=== PATIENT | male | born 1965 | race American Indian/Alaskan Native ===

== ENCOUNTER 2017-06-25 22:31 | Inpatient (IN) | payer OTHER ==
[2017-06-25 23:25] VITALS: BMI 44.3
[2017-06-25] MEDS ORDERED: Sodium Chloride 0.9% 1,000 ML IV STA (23:42)
--- NOTE | 2017-06-25 23:57 | ED PDOC ---
Arrival/HPI - General Chief Complaint: Abdominal Pain Time Seen by Provider: 06/25/17 23:38 Historian: Patient - History of Present Illness Narrative History of Present Illness (Text): 06/25/17 23:54 Miguel Perez is a 52 year old male, whose past medical history includes diabetes, who presents to the Emergency department complaining of abdominal pain. Patient states he has been experiencing lower abdominal pain since 04:30 today, but pain has gradually worsened throughout the day. Patient notes he was unable to make it to the bathroom due to pain and urinated on himself. Patient reports associated fever, chills, and notes he feels near-syncopal at times. Patient denies any chest pain, shortness of breath, nausea, vomiting, diarrhea, back pain, neck pain, headache, dizziness, or any other complaints. Time/Duration: Other (04:30) Symptom Onset: Gradual Symptom Course: Unchanged Activities at Onset: Rest, Light Context: Home Past Medical History - Provider Review Nursing Documentation Reviewed: Yes - Infectious Disease Hx of Infectious Diseases: None - Cardiac Hx Pacemaker: No - Neurological Hx Paralysis: No - Endocrine/Metabolic Hx Diabetes Mellitus Type 2: Yes - Hematological/Oncological Hx Blood Transfusions: No Hx Blood Transfusion Reaction: No - Musculoskeletal/Rheumatological Hx Musculoskeletal Disorders: No - Psychiatric Hx Emotional Abuse: No Hx Physical Abuse: No Hx Substance Use: No - Past Surgical History Past Surgical History: No Previous - Surgical History Other/Comment: abdominal surgery. - Anesthesia Hx Anesthesia: Yes Hx Anesthesia Reactions: No Hx Malignant Hyperthermia: No - Suicidal Assessment Feels Threatened In Home Enviroment: No Family/Social History - Physician Review Nursing Documentation Reviewed: Yes Family/Social History: Unknown Family HX Smoking Status: Former Smoker Hx Alcohol Use: Yes (OCCASIONALLY) Frequency of alcohol use: Socially Hx Substance Use: No Hx Substance Use Treatment: No Allergies/Home Meds Allergies/Adverse Reactions: Allergies No Known Allergies Allergy (Unverified 06/21/15 19:35) Home Medications: Home Meds Medication Instructions Recorded Confirmed Atorvastatin [Lipitor] 10 mg PO DAILY 02/07/16 06/25/17 GlipiZIDE [Glucotrol] 5 mg PO BID 02/07/16 06/25/17 Metformin HCl [Fortamet] 1,000 mg PO BID 02/07/16 06/25/17 Multivitamin [Kidztuff [employer] Bears 1 ctb PO DAILY 02/08/16 06/25/17 Multivitamin] Dunmor-3 Fatty Acids/Fish Oil [Fish 1,000 mg PO DAILY 02/08/16 06/25/17 Oil 1,000 mg Capsule] Canagliflozin [Invokana] 1 tab PO DAILY 06/25/17 06/25/17 Review of Systems - Physician Review All systems were reviewed & negative as marked: Yes - Review of Systems Constitutional: Fevers, Other (+chills) Eyes: Normal ENT: Normal Respiratory: Normal. absent: SOB, Cough Cardiovascular: Other (+near-syncopal). absent: Chest Pain Gastrointestinal: Abdominal Pain Genitourinary Male: absent: Dysuria Musculoskeletal: Normal. absent: Back Pain, Neck Pain Skin: Normal. absent: Other Neurological: Normal Endocrine: Normal Hemo/Lymphatic: Normal Psychiatric: Normal Physical Exam Vital Signs Reviewed: Yes Vital Signs Temp Pulse Resp BP Pulse Ox 06/25/17 23:51 101.8 F H 104 H 18 103/58 L 99 06/25/17 23:29 101.8 F H 123 H 18 94 L Temperature: Febrile Blood Pressure: Normal Pulse: Regular Respiratory Rate: Normal Appearance: Positive for: Well-Appearing, Non-Toxic, Comfortable Pain Distress: None Mental Status: Positive for: Alert and Oriented X 3 - Systems Exam Head: Present: Atraumatic, Normocephalic Pupils: Present: PERRL Extroacular Muscles: Present: EOMI Conjunctiva: Present: Normal Mouth: Present: Moist Mucous Membranes Neck: Present: Normal Range of Motion Respiratory/Chest: Present: Clear to Auscultation, Good Air Exchange. No: Respiratory Distress, Accessory Muscle Use Cardiovascular: Present: Regular Rate and Rhythm, Normal S1, S2. No: Murmurs Abdomen: Present: Tenderness (RLQ tenderness), Normal Bowel Sounds. No: Distention, Peritoneal Signs Back: Present: Normal Inspection Upper Extremity: Present: Normal Inspection. No: Cyanosis, Edema Lower Extremity: Present: Normal Inspection. No: Edema Neurological: Present: GCS=15, CN II-XII Intact, Speech Normal Skin: Present: Warm, Dry, Normal Color. No: Rashes Psychiatric: Present: Alert, Oriented x 3, Normal Insight, Normal Concentration Medical Decision Making ED Course and Treatment: 06/25/17 23:55 Impression: 52 year old male complaining of lower abdominal pain, fever, chills, and near- syncope. Plan: -- CT Abdomen and Pelvis w/o contrast -- EKG -- CXR -- Labs, VBG, blood cultures -- Urinalysis, urine cultures -- IV fluids -- Tylenol -- Reassess and disposition Prior Visits: Notes and results from previous visits were reviewed. Progress Notes: Reviewed EKG, sinus tachycardia at 105 bpm. Inferior infarct. Poor R-wave progression. 06/26/17 06:00 Please refer to downtime documentation. - Lab Interpretations Lab Results: 06/26/17 01:27 06/26/17 01:27 Lab Results 06/26/17 01:27: Sodium 137, Chloride 103, Potassium 3.4 L, Carbon Dioxide 25, Anion Gap 12, BUN 28 H, Creatinine 1.9 H, Est GFR ( Amer) 45, Est GFR ( Non-Af Amer) 38, Random Glucose 115 H, Calcium 8.5, Phosphorus 3.3, Magnesium 1.6 L, Total Bilirubin 2.1 H, AST 16, ALT 23, Alkaline Phosphatase 62, Total Protein 6.6, Albumin 3.4, Globulin 3.2, Albumin/Globulin Ratio 1.1 06/26/17 01:27: pO2 67 H, VBG pH 7.40, VBG pCO2 41.0, VBG HCO3 25.4, VBG Total CO2 26.7, VBG O2 Sat (Calc) 96.4 H, VBG Base Excess 0.5, VBG Potassium 4.1, Sodium 135.0, Chloride 100.0, Glucose 125 H, Lactate 2.0, FiO2 21.0, Venous Blood Potassium 4.1 06/26/17 01:27: WBC 22.6 H, RBC 4.94, Hgb 14.0, Hct 41.3 L, MCV 83.6, MCH 28.3, MCHC 33.9, RDW 14.6 H, Plt Count 223, MPV 11.3 H, Neutrophils % (Manual) 71 H, Band Neutrophils % 7 H, Lymphocytes % (Manual) 12 L, Monocytes % (Manual) 10 H, Platelet Evaluation Normal I have reviewed the lab results: Yes - RAD Interpretation Radiology Orders: 06/25/17 23:40 CHEST PORTABLE [RAD] Stat 06/26/17 00:14 ABD & PELVIS W/O PO OR IV CONT [CT] Stat - EKG Interpretation Interpreted by ED Physician: Yes Type: 12 lead EKG - Medication Orders Current Medication Orders: Acetaminophen (Tylenol 325mg Tab) 650 mg PO Q4H PRN PRN Reason: TEMP > 101.5 F Last Admin: 06/26/17 19:22 Dose: 650 mg Re-Assess: MAR Pain/Vitals Document 06/26/17 20:22 NW (Rec: 06/26/17 20:47 NW [id number]) Pain Reassessment Is This A Pain ReAssessment? No Sleep Is patient sleeping during reassessment? No Presence of Pain Presence of Pain No Vitals Temperature (97.6 F-99.6 F) 100.9 F Temperature Source Oral Sodium Chloride (Sodium Chloride 0.9%) 1,000 mls @ 100 mls/hr IV .Q10H PAULO Stop: 06/27/17 02:29 Last Admin: 06/26/17 19:26 Dose: Piperacillin Sod/Tazobactam Sod (Zosyn 2.25 Gm In 0.9% 100 Ml) 100 mls @ 100 mls/hr IV Q8 PAULO PRN Reason: Protocol Stop: 07/05/17 22:01 Insulin Human Regular (Humulin R Med) 0 units SC ACHS PAULO PRN Reason: Protocol Last Admin: 06/26/17 16:22 Dose: Not Given Non-Admin Reason: Blood Sugar Parameter Oxycodone/Acetaminophen (Percocet 5/325 Mg Tab) 1 tab PO Q6H PRN PRN Reason: Pain, moderate (4-7) Stop: 06/29/17 11:44 Discontinued Medications Acetaminophen (Tylenol 325mg Tab) 975 mg PO STAT STA Stop: 06/25/17 23:44 Last Admin: 06/26/17 00:26 Dose: 975 mg Sodium Chloride (Sodium Chloride 0.9%) 1,000 mls @ 999 mls/hr IV .Q1H1M STA Stop: 06/26/17 00:42 Ceftriaxone Sodium (Rocephin 1 Gram Ivpb) Confirm Administered Dose 1 gm in 100 mls @ ud IVPB .STK-MED ONE Stop: 06/26/17 03:27 Metronidazole (Flagyl) Confirm Administered Dose 500 mg in 100 mls @ ud .ROUTE .STK-MED ONE Stop: 06/26/17 03:28 Metronidazole (Flagyl) 500 mg in 100 mls @ 100 mls/hr IVPB Q8 PAULO PRN Reason: Protocol Ceftriaxone Sodium (Rocephin 1 Gram Ivpb) 1 gm in 100 mls @ 100 mls/hr IVPB DAILY PAULO PRN Reason: Protocol Last Admin: 06/26/17 09:11 Dose: 100 mls/hr Metronidazole (Flagyl) 500 mg in 100 mls @ 100 mls/hr IVPB Q8 PAULO PRN Reason: Protocol Last Admin: 06/26/17 14:41 Dose: Ceftriaxone Sodium (Rocephin 1 Gram Ivpb) 1 gm in 100 mls @ 100 mls/hr IVPB DAILY PAULO PRN Reason: Protocol Magnesium Sulfate 2 gm/ Sodium (Chloride) 104 mls @ 102 mls/hr IVPB ONCE ONE Stop: 06/26/17 13:00 Last Admin: 06/26/17 13:10 Dose: 102 mls/hr Potassium Chloride (K-Dur 20 Meq Er Tab) 40 meq PO ONCE ONE Stop: 06/26/17 09:34 Last Admin: 06/26/17 11:32 Dose: 40 meq - Scribe Statement The provider has reviewed the documentation as recorded by the Benson Crowder Provider Scribe Attestation: All medical record entries made by the Scribmayco were at my direction and personally dictated by me. I have reviewed the chart and agree that the record accurately reflects my personal performance of the history, physical exam, medical decision making, and the department course for this patient. I have also personally directed, reviewed, and agree with the discharge instructions and disposition. Disposition/Present on Arrival - Present on Arrival Any Indicators Present on Arrival: No History of DVT/PE: No History of Uncontrolled Diabetes: No Urinary Catheter: No History of Decub. Ulcer: No History Surgical Site Infection Following: None - Disposition Have Diagnosis and Disposition been Completed?: Yes Diagnosis: Sepsis Disposition: HOSPITALIZED Disposition Time: 03:40 Patient Plan: Admission Condition: STABLE
[2017-06-26] MEDS ORDERED: cefTRIAXone 1 gm 1 GM/100 ML BAG IVPB ONE (03:26)
[2017-06-26] MEDS ORDERED: metroNIDAZOLE IV 500 mg/100 ml 500 MG/100 ML BAG ONE (03:27)
[2017-06-26 06:28] LABS: MEAN CELL VOLUME 83.6 fL (80.0-105.0); MEAN CORPUSCULAR HEMOGLOBIN 28.3 pg (25.0-35.0); MEAN CORPUSCULAR HGB CONC 33.9 g/dl (31.0-37.0); MEAN PLATELET VOLUME 11.3 fl (7.0-11.0); PLATELET COUNT 223 10^3/uL (120.0-450.0); RBC 4.94 10^6/uL (3.5-6.1); RED CELL DISTRIBUTION WIDTH 14.6 % (11.5-14.5); WHITE BLOOD COUNT 22.6 10^3/ul (4.5-11.0)
[2017-06-26 06:29] LABS: BAND 7 % (0-2); NEUTROPHIL 71 % (50.0-70.0)
[2017-06-26 06:30] LABS: LYMPHOCYTE 12 % (22.0-35.0); MONOCYTE 10 % (1.0-6.0); PLATELET ESTIMATE NORMAL (NORMAL)
[2017-06-26] MEDS: Sodium Chloride 0.9% 1,000 ML IV SCH ×2 (06:42→19:26)
[2017-06-26 06:49] LABS: VENOUS BLOOD GAS BASE EXCESS 0.5 mmol/L (0.0-2.0); VENOUS BLOOD GAS PO2 67 mm/Hg (30-55)
[2017-06-26 06:54] LABS: VENOUS BLOOD GAS BASE EXCESS -6.3 mmol/L (0.0-2.0); VENOUS BLOOD GAS PO2 42 mm/Hg (30-55); VENOUS BLOOD PH 7.28 (7.32-7.43)
[2017-06-26 06:59] LABS: ALB/GLOB RATIO 1.1 (1.1-1.8); ALBUMIN 3.4 g/dL (3.0-4.8); CALCIUM 8.5 mg/dL (8.4-10.5); MAGNESIUM 1.6 mg/dL (1.7-2.2)
--- NOTE | 2017-06-26 07:19 | RAD ---
HISTORY: Sepsis Patient COMPARISON: No prior. FINDINGS: LUNGS: Shallow lung volumes. Right perihilar soft tissue prominence blending with mild central pulmonary vascular congestion right greater than left. Concomitant right perihilar soft tissue pathology including right perihilar mass and right hilar lymphadenopathy are not excluded . Large body habitus, apical lordotic projection and portable technique all likely contributory to this appearance PLEURA: No significant pleural effusion identified, no pneumothorax apparent. CARDIOVASCULAR: Cardiomegaly. Central pulmonary vascular congestion right greater than left OSSEOUS STRUCTURES: Thoracic spondylosis VISUALIZED UPPER ABDOMEN: Normal. OTHER FINDINGS: None. IMPRESSION: Limited exam for reasons stated above. No peripheral consolidation appreciated. Cardiomegaly and pulmonary vascular congestion right greater than left. Concomitant right hilar/ perihilar pathology not excluded. Consider follow-up chest x-ray PA and lateral versus follow-up CT chest exam with contrast.
--- NOTE | 2017-06-26 08:36 | CT ---
PROCEDURE: CT Abdomen and Pelvis without intravenous contrast HISTORY: lower abdominal pain COMPARISON: None. TECHNIQUE: Without contrast. Contrast Dose: Radiation dose: Total exam DLP = 1398 mGy-cm. This CT exam was performed using one or more of the following dose reduction techniques: Automated exposure control, adjustment of the mA and/or kV according to patient size, and/or use of iterative reconstruction technique. FINDINGS: LOWER THORAX: Unremarkable. LIVER: 4 cm cyst in the hepatic dome. Fatty infiltration of the liver GALLBLADDER AND BILE DUCTS: Gallbladder removed PANCREAS: Unremarkable. No gross lesion or ductal dilatation. SPLEEN: Unremarkable. ADRENALS: Unremarkable. No mass. KIDNEYS AND URETERS: Unremarkable. No hydronephrosis. No solid mass. VASCULATURE: Unremarkable. No aortic aneurysm. BOWEL: Unremarkable. No obstruction. No gross mural thickening. APPENDIX: Unremarkable. Normal appendix. PERITONEUM: Unremarkable. No free fluid. No free air. LYMPH NODES: Unremarkable. No enlarged lymph nodes. BLADDER: There is minimal stranding posterior to the bladder and seminal vesicles. This could represent cystitis. Correlation with urinalysis recommended. REPRODUCTIVE: Unremarkable. BONES: No acute fracture. OTHER FINDINGS: The report concurs with the preliminary [facility] report IMPRESSION: Minimal stranding adjacent to the posterior bladder and seminal vesicles. Possible cystitis The study is otherwise unremarkable
[2017-06-26] MEDS ORDERED: Potassium Chloride 20 mEq ER Tab PO ONE (09:33)
[2017-06-26] MEDS ORDERED: cefTRIAXone 1 gm 1 GM/100 ML BAG IVPB SCH ×2 (10:00)
[2017-06-26 11:05] LABS: HEMOGLOBIN 12.8 gm/dL (14.0-18.0); MEAN CELL VOLUME 83.3 fL (80.0-105.0); MEAN CORPUSCULAR HEMOGLOBIN 27.5 pg (25.0-35.0); MEAN PLATELET VOLUME 11.4 fl (7.0-11.0); RBC 4.66 10^6/uL (3.5-6.1); RED CELL DISTRIBUTION WIDTH 14.3 % (11.5-14.5); WHITE BLOOD COUNT 18.7 10^3/ul (4.5-11.0)
[2017-06-26] MEDS: metroNIDAZOLE IV 500 mg/100 ml 500 MG/100 ML BAG IVPB SCH ×2 (11:05→14:41)
--- NOTE | 2017-06-26 11:19 | US ---
HISTORY: Elevated LFT COMPARISON: CT abdomen and pelvis -same-day TECHNIQUE: Sonographic evaluation of the abdomen. FINDINGS: LIVER: Measures 20.4 by 20.8 cm. Diffuse increased echogenicity of the liver parenchyma. No solid-appearing mass. A right hepatic lobe minimally septated cyst, 4.8 x 3.1 x 4.5 cm noted consistent with that reported on CT No intrahepatic bile duct dilatation. GALLBLADDER: Nonvisualized -prior cholecystectomy COMMON BILE DUCT: Measures 5.2 mm. No stones. No dilatation. PANCREAS: Unremarkable as visualized. No mass. No ductal dilatation. RIGHT KIDNEY: Measures 11.1 x 5.7 x 6.7cm. Normal echogenicity. No calculus, mass, or hydronephrosis. LEFT KIDNEY: Measures 12.0 x 8.0 x 6.3cm. Normal echogenicity. No calculus, mass, or hydronephrosis. SPLEEN: Normal in size and contour. No mass. AORTA: No aneurysmal dilatation. IVC: Unremarkable. OTHER FINDINGS: None. IMPRESSION: Right hepatic lobe minimally septated cyst measuring up to 4.8 cm. . Fatty infiltration of the liver. Status postcholecystectomy. No worrisome dilated ducts
[2017-06-26 11:46] LABS: VENOUS BLOOD GAS PO2 58 mm/Hg (30-55); VENOUS BLOOD PH 7.36 (7.32-7.43)
[2017-06-26] MEDS ORDERED: Magnesium Sulfate 2 GM in Sodium Chloride 0.9% 100 ML IVPB ONE (11:59)
[2017-06-26] MEDS: Insulin Reg-MEDIUM-Coverage SC SCH ×3 (12:37→21:43)
--- NOTE | 2017-06-26 13:40 | CP.PCM.CON ---
<Shae Soria - Last Filed: 06/26/17 13:41> History of Present Illness - History of Present Illness History of Present Illness: Seen and examined earlier this am,chart reviewed, request for consult is for abdominal pain. HPI: This is a 52 morbidly obese male with a PMH of DM type II comes to the ER with complaints of feeling like he had was going to pass out. He did not have any LOC. He c/o sudden onset of abdominal pain, that woke him up around 4 am on Saturday. Last he recall eating at home ribs, macaroni, and eleno greens, he did state that on Saturday night he had chicken strips outside. He did c/o feeling fever and chills, had nausea, no vomiting, had regular BM, no diarrhea. But he was incontinent of urine. Last BM was this morning and was formed, no melena or BRBPR. The pain yesterday was 9/10 this am is 3/10. He had ct scan abdomen and pelvis and no acute findings but for possible renal cysts. He c/o suprapubic abdominal pain. His last colon was 04/2016, no polyps but internal hemorrhoids. PMH: DM, type II, morbid obesity, internal hemorrhoids PSH: denies cholecytectomy, colon 04/2016 Allergies: NKDA MEDS: reviewed as per MAR Social HX: former smoker, social ETOH, denies drugs Family HX: noncontributory at this time ROS: systems reviewed, with positive Past Patient History - Infectious Disease Hx of Infectious Diseases: None - Past Social History Smoking Status: Former Smoker - CARDIAC Hx Pacemaker: No - NEUROLOGICAL Hx Paralysis: No - ENDOCRINE/METABOLIC Hx Diabetes Mellitus Type 2: Yes - HEMATOLOGICAL/ONCOLOGICAL Hx Blood Transfusions: No Hx Blood Transfusion Reaction: No - MUSCULOSKELETAL/RHEUMATOLOGICAL Hx Musculoskeletal Disorders: No - PSYCHIATRIC Hx Emotional Abuse: No Hx Physical Abuse: No Hx Substance Use: No - SURGICAL HISTORY Other/Comment: abdominal surgery. - ANESTHESIA Hx Anesthesia: Yes Hx Anesthesia Reactions: No Hx Malignant Hyperthermia: No Meds Allergies/Adverse Reactions: Allergies Allergy/AdvReac Type Severity Reaction Status Date / Time No Known Allergies Allergy Unverified 06/21/15 19:35 - Medications Medications: Current Medications Acetaminophen (Tylenol 325mg Tab) 650 mg PO Q4H PRN PRN Reason: TEMP > 101.5 F Last Admin: 06/26/17 11:14 Dose: 650 mg Sodium Chloride (Sodium Chloride 0.9%) 1,000 mls @ 100 mls/hr IV .Q10H [facility] Stop: 06/27/17 02:29 Last Admin: 06/26/17 06:42 Dose: 100 mls/hr Ceftriaxone Sodium (Rocephin 1 Gram Ivpb) 1 gm in 100 mls @ 100 mls/hr IVPB DAILY PAULO PRN Reason: Protocol Last Admin: 06/26/17 09:11 Dose: 100 mls/hr Metronidazole (Flagyl) 500 mg in 100 mls @ 100 mls/hr IVPB Q8 PAULO PRN Reason: Protocol Last Admin: 06/26/17 11:05 Dose: 100 mls/hr Insulin Human Regular (Humulin R Med) 0 units SC ACHS PAULO PRN Reason: Protocol Last Admin: 06/26/17 12:37 Dose: Not Given Oxycodone/Acetaminophen (Percocet 5/325 Mg Tab) 1 tab PO Q6H PRN PRN Reason: Pain, moderate (4-7) Stop: 06/29/17 11:44 Physical Exam - Constitutional Appears: No Acute Distress - Head Exam Head Exam: NORMAL INSPECTION - Eye Exam Eye Exam: Normal appearance. absent: Scleral icterus - ENT Exam ENT Exam: Mucous Membranes Moist - Neck Exam Neck exam: Positive for: Normal Inspection - Respiratory Exam Respiratory Exam: Decreased Breath Sounds, NORMAL BREATHING PATTERN. absent: Rales, Wheezes, Respiratory Distress - Cardiovascular Exam Cardiovascular Exam: +S1, +S2 - GI/Abdominal Exam GI & Abdominal Exam: Distended (obese), Normal Bowel Sounds, Soft, Tenderness ( suprapubic). absent: Guarding, Rebound - Extremities Exam Extremities exam: Positive for: pedal pulses present. Negative for: calf tenderness, pedal edema - Neurological Exam Neurological exam: Alert, Oriented x3 - Skin Skin Exam: Dry, Warm Results - Vital Signs Recent Vital Signs: Last Vital Signs Temp 100.3 F H 06/26/17 11:14 Pulse 116 H 06/26/17 07:43 Resp 22 06/26/17 07:43 BP 101/66 06/26/17 10:01 Pulse Ox 95 06/26/17 07:43 - Labs Result Diagrams: 06/26/17 09:00 06/26/17 01:27 Labs: Laboratory Results - last 24 hr 06/26/17 06/26/17 06/26/17 06:51 07:39 09:00 WBC 18.7 H RBC 4.66 Hgb 12.8 L Hct 38.8 L MCV 83.3 MCH 27.5 MCHC 33.0 RDW 14.3 Plt Count 193 MPV 11.4 H pO2 42 VBG pH 7.28 L VBG pCO2 43.0 VBG HCO3 20.2 L VBG Total CO2 21.5 L VBG O2 Sat (Calc) 77.7 H VBG Base Excess -6.3 L VBG Potassium 3.4 L Sodium 139.0 Chloride 112.0 H Glucose 86 Lactate 2.2 H FiO2 21.0 POC Glucose (mg/dL) 114 H Prostate Specific Ag Venous Blood Potassium 3.4 L 06/26/17 06/26/17 06/26/17 10:35 11:30 11:35 WBC RBC Hgb Hct MCV MCH MCHC RDW Plt Count MPV pO2 58 H VBG pH 7.36 VBG pCO2 37.0 L VBG HCO3 20.9 L VBG Total CO2 22.0 VBG O2 Sat (Calc) 93.1 H VBG Base Excess -4.0 L VBG Potassium 2.8 L Sodium 139.0 Chloride 111.0 H Glucose 101 Lactate 1.1 FiO2 21.0 POC Glucose (mg/dL) 55 L Prostate Specific Ag 21.4 H Venous Blood Potassium 2.8 L 06/26/17 12:21 WBC RBC Hgb Hct MCV MCH MCHC RDW Plt Count MPV pO2 VBG pH VBG pCO2 VBG HCO3 VBG Total CO2 VBG O2 Sat (Calc) VBG Base Excess VBG Potassium Sodium Chloride Glucose Lactate FiO2 POC Glucose (mg/dL) 165 H Prostate Specific Ag Venous Blood Potassium Assessment & Plan - Assessment and Plan (Free Text) Assessment: ASSESSMENT: Leukocytosis Abdominal Pain, more suprapubic R/O cystitis Hyperbilirubinemia Morbid obesity DM Elevated PSA PLAN: Abdominal US mod carb diet on IV ceftriaxone and flagyl trend lft check retic count IVF for hydration blood culture pending urine c/s to be collected ID following Thank you for this consult and for allowing us to participate in your patient care, will make further recommendation based upon clinical course. Seenand discussed with Dr. Gualberto. <Gualberto,Kovil V - Last Filed: 06/26/17 23:34> Meds - Medications Medications: Current Medications Acetaminophen (Tylenol 325mg Tab) 650 mg PO Q4H PRN PRN Reason: TEMP > 101.5 F Last Admin: 06/26/17 19:22 Dose: 650 mg Sodium Chloride (Sodium Chloride 0.9%) 1,000 mls @ 100 mls/hr IV .Q10H PAULO Stop: 06/27/17 02:29 Last Admin: 06/26/17 19:26 Dose: Not Given Piperacillin Sod/Tazobactam Sod (Zosyn 2.25 Gm In 0.9% 100 Ml) 2.25 gm in 100 mls @ 100 mls/hr IV Q8 PAULO PRN Reason: Protocol Stop: 07/05/17 22:01 Last Admin: 06/26/17 21:44 Dose: 100 mls/hr Insulin Human Regular (Humulin R Med) 0 units SC ACHS PAULO PRN Reason: Protocol Last Admin: 06/26/17 21:43 Dose: Not Given Oxycodone/Acetaminophen (Percocet 5/325 Mg Tab) 1 tab PO Q6H PRN PRN Reason: Pain, moderate (4-7) Stop: 06/29/17 11:44 Results - Vital Signs Recent Vital Signs: Last Vital Signs Temp 100.9 F H 06/26/17 20:22 Pulse 98 H 06/26/17 16:00 Resp 20 06/26/17 16:00 BP 116/58 L 06/26/17 16:00 Pulse Ox 98 06/26/17 16:00 - Labs Result Diagrams: 06/26/17 09:00 06/26/17 01:27 Labs: Laboratory Results - last 24 hr 06/26/17 06/26/17 06/26/17 06:51 07:39 09:00 WBC 18.7 H RBC 4.66 Hgb 12.8 L Hct 38.8 L MCV 83.3 MCH 27.5 MCHC 33.0 RDW 14.3 Plt Count 193 MPV 11.4 H pO2 42 VBG pH 7.28 L VBG pCO2 43.0 VBG HCO3 20.2 L VBG Total CO2 21.5 L VBG O2 Sat (Calc) 77.7 H VBG Base Excess -6.3 L VBG Potassium 3.4 L Sodium 139.0 Chloride 112.0 H Glucose 86 Lactate 2.2 H FiO2 21.0 POC Glucose (mg/dL) 114 H Prostate Specific Ag Venous Blood Potassium 3.4 L 06/26/17 06/26/17 06/26/17 10:35 11:30 11:35 WBC RBC Hgb Hct MCV MCH MCHC RDW Plt Count MPV pO2 58 H VBG pH 7.36 VBG pCO2 37.0 L VBG HCO3 20.9 L VBG Total CO2 22.0 VBG O2 Sat (Calc) 93.1 H VBG Base Excess -4.0 L VBG Potassium 2.8 L Sodium 139.0 Chloride 111.0 H Glucose 101 Lactate 1.1 FiO2 21.0 POC Glucose (mg/dL) 55 L Prostate Specific Ag 21.4 H Venous Blood Potassium 2.8 L 06/26/17 06/26/17 06/26/17 12:21 15:45 21:33 WBC RBC Hgb Hct MCV MCH MCHC RDW Plt Count MPV pO2 VBG pH VBG pCO2 VBG HCO3 VBG Total CO2 VBG O2 Sat (Calc) VBG Base Excess VBG Potassium Sodium Chloride Glucose Lactate FiO2 POC Glucose (mg/dL) 165 H 125 H 113 H Prostate Specific Ag Venous Blood Potassium Attending/Attestation - Attestation I have personally seen and examined this patient.: Yes I have fully participated in the care of the patient.: Yes I have reviewed all pertinent clinical information: Yes Notes (Text): 06/26/17 23:34 thi
[2017-06-26] MEDS ORDERED: metroNIDAZOLE IV 500 mg/100 ml 500 MG/100 ML BAG IVPB SCH (14:00)
--- NOTE | 2017-06-26 16:09 | HP ---
DATE: 06/26/2017 HISTORY OF PRESENT ILLNESS: This is a 52-year-old male, who is coming to the hospital with a past medical history of diabetes. He was complaining of abdominal pain. He was saying that he had urinary incontinence. The patient was complaining of burning when he went to the bathroom. This happened about a day prior to coming to the hospital. He has been having fevers and chills. He has been sweating. The patient has been having near syncope. He reports that he had chills and fevers. He has no complaints of back pain and no weakness in the arms or legs. No dizziness. He has been eating okay. REVIEW OF SYSTEMS: All other review of symptoms are within normal limits except what is mentioned. HOME MEDICATIONS: Lipitor, Glucotrol, Fortamet, multivitamin, and Invokana. PAST MEDICAL HISTORY: Dyslipidemia, diabetes type 2. SOCIAL HISTORY: Denies smoking. He is a former smoker, he drinks socially. FAMILY HISTORY: Noncontributory. PHYSICAL EXAMINATION: VITAL SIGNS: The patient has a T-max of 102, pulse is 116, blood pressure is 104/39, respirations 22, O2 saturation 95%, height is 5 feet 9 inches, weight is 300 pounds, BMI is 44.3. GENERAL: The patient is lying in bed, comfortable, in no acute distress. HEENT: Atraumatic and normocephalic. Anicteric sclerae. Moist mucosa. No oral lesions. Conjunctivae pink. EOMI. PERRLA. NECK: Supple, no JVD, thyromegaly, or bruits. No anterior, posterior, or cervical adenopathy. HEART: S1 and S2 irregular. No murmurs, rubs, or gallops. LUNGS: Clear to auscultation bilaterally. No wheezes, rales, or rhonchi. No retractions. ABDOMEN: Bowel sounds are positive. Soft, nontender, and nondistended. No hepatosplenomegaly. EXTREMITIES: No cyanosis, clubbing, or edema. NEUROLOGICAL: No facial asymmetry. Tongue is midline. No uvula deviation. Power is 5/5 in upper extremity and lower extremity. Sensation is intact in the upper and lower extremity. PSYCHIATRIC: Awake, alert, oriented x3. No anxiety or depression. Good insight. Normal affect. GENITOURINARY: No CVA tenderness. VASCULAR: 2+ pulses in the carotids and pedal pulses. SKIN: No edema or abnormal nodules. SPINE: Normal curvature. ADENOPATHY: No anterior, posterior, or cervical adenopathy. LABORATORY DATA: The patient has a white count of 22.6, hemoglobin 14. The patient's ABG showed a pH of 7.4, PCO2 is 41, and the lactate of 2.2. Second ABG; potassium 3.4, creatinine is 1.9, unknown baseline, magnesium is 1.6. The patient has BUN of 28. CT of the abdomen and pelvis done shows minimal stranding adjacent to the posterior bladder and seminal vesicles, possible cystitis. Chest x-ray is limited. There is no peripheral consolidation that is appreciated. ASSESSMENT: 1. Sepsis. 2. Acute kidney injury. 3. Diabetes type 2. 4. Dyslipidemia. PLAN: The patient has been having high fevers. He is having urinary symptoms. He most likely has sepsis secondary to urinary tract infection. Blood cultures and urine cultures have been ordered. I have asked to evaluate. He has been given Rocephin and Flagyl as well as IV fluids for his acute kidney injury. I will place him on insulin sliding scale with fingerstick coverage. I will also get PSA. This patient, who is and over 50, to rule out prostatitis. He is going to have repeat blood work done tomorrow. I will continue to follow him closely. I will give him Percocet for pain as he says Tylenol is not helping. Nish Mathias MD
--- NOTE | 2017-06-26 17:37 | CARD ---
APPROVED REPORT EKG Measurement Heart [id number] <Conclusion> Sinus tachycardia Inferior infarct, age undetermined Possible Anterior infarct, age undetermined Abnormal ECG
[2017-06-26] MEDS: Piperacillin/Tazobact 2.25gm 2.25 GM/100 ML BAG IV SCH (21:44)
[2017-06-27] MEDS: Oxycodone/Acetaminophen 5/325 mg Tab PO PRN ×2 (00:10→22:02)
[2017-06-27] MEDS: Piperacillin/Tazobact 2.25gm 2.25 GM/100 ML BAG IV SCH ×3 (05:06→21:55)
--- NOTE | 2017-06-27 05:47 | CON ---
DATE: 06/26/2017 The patient is seen in bed and in no acute distress, seen earlier this morning at 3:67. CHIEF COMPLAINT: Abdominal pain x1 day duration. HISTORY OF PRESENT ILLNESS: This is a 52-year-old male with morbid obesity with a BMI of 44, who is admitted through the emergency room complaining of abdominal pain. Lower abdominal pain is diffuse in nature and worse throughout the night, it is associated with urination , dysuria and frequency. He also complained of fevers. He continued to have chills. No chest pain, shortness of breath, or cough. No back pain. He denies any nausea or vomiting. PAST MEDICAL HISTORY: Significant for diabetes mellitus, hypertension, and high cholesterol. PAST SURGICAL HISTORY: Noncontributory. ALLERGIES: THE PATIENT HAS NO KNOWN ALLERGIES TO ANY ANTIBIOTICS. MEDICATIONS: The patient's medications at home are reviewed include fish oil, vitamins, Glucotrol, Lipitor, and canagliflozin. PHYSICAL EXAMINATION: GENERAL: The patient is seen in bed. VITAL SIGNS: Temperature 102, respiratory rate 20, heart rate 98, and blood pressure 116/70. HEENT: Unremarkable. NECK: Supple. HEART: Normal S1 and S2. LUNGS: Decreased breath sounds. ABDOMEN: Soft and nontender. Mild tenderness to lower abdominal area. LABORATORY DATA: Reveals a white count of 22,000 with a hemoglobin of 14, platelets of 223, and 7% bandemia. Blood gases are noted. Chemistry revealed a PSA of 21 and creatinine is 1.9. The patient had a CAT scan of the abdomen and pelvis, which revealed lower thorax to be unremarkable liver cystitis. Shae Soria' consultation is reviewed and notes on abdominal ultrasound is also noted. The patient with a history of cholecystectomy is noted. Common bile duct at 5.2 mm with no stones seen. ASSESSMENT AND PLAN: He is a 52-year-old male with morbid obesity, body mass index of 44, diabetes, hypertension, high cholesterol, history of cholecystectomy, admitted with severe sepsis, most likely secondary to and cystitis with acute kidney injury. We will treat with Zosyn and discontinue Flagyl and Rocephin and HIV test. We order urinalysis and urine culture and we will make further recommendations. He had an urology evaluation for an elevated PSA, rule out prostatitis and prostate disease. We will follow with you. Dillon Alaniz MD [facility] # [id number]
[2017-06-27 07:11] LABS: HEMOGLOBIN 12.7 gm/dL (14.0-18.0); MEAN CORPUSCULAR HEMOGLOBIN 27.3 pg (25.0-35.0); MEAN CORPUSCULAR HGB CONC 32.9 g/dl (31.0-37.0); MEAN PLATELET VOLUME 11.6 fl (7.0-11.0); RBC 4.65 10^6/uL (3.5-6.1); RED CELL DISTRIBUTION WIDTH 14.5 % (11.5-14.5); WHITE BLOOD COUNT 20.8 10^3/ul (4.5-11.0)
[2017-06-27 07:14] LABS: INR 1.22 (0.93-1.08); PARTIAL THROMBOPLASTIN TIME 39.7 Seconds (23.7-30.8); PROTHROMBIN TIME 13.2 Seconds (9.9-11.8)
[2017-06-27 07:43] LABS: ALBUMIN 3.3 g/dL (3.0-4.8); ALT/SGPT 25 U/L (7-56); AST/SGOT 21 U/L (15-59); BILIRUBIN,DIRECT 0.4 mg/dL (0.0-0.4); BLOOD UREA NITROGEN 14 mg/dL (7-21); CALCIUM 8.7 mg/dL (8.4-10.5); GFR AFRICAN-AMERICAN > 60; GFR NON-AFRICAN AMERICAN > 60
[2017-06-27] MEDS ORDERED: Potassium Chloride 20 mEq ER Tab PO ONE (08:07)
[2017-06-27] MEDS: Insulin Reg-MEDIUM-Coverage SC SCH ×3 (09:10→21:52)
[2017-06-27 10:49] LABS: URINE BILIRUBIN NEGATIVE (NEGATIVE); URINE BLOOD MODERATE (NEGATIVE); URINE GLUCOSE (UA) >=1000 mg/dL (NEGATIVE); URINE LEUKOCYTE ESTERASE NEGATIVE Leu/uL (NEGATIVE); URINE NITRATE NEGATIVE (NEGATIVE); URINE PROTEIN 30 mg/dL (<30 mg/dL); URINE UROBILINOGEN 0.2 E.U./dL (<1 E.U./dL)
[2017-06-27 10:50] LABS: URINE COLOR LIGHT YELLOW (YELLOW)
[2017-06-27 11:42] LABS: URINE RBC 0 - 2 /hpf (0-2)
[2017-06-27 11:43] LABS: URINE BACTERIA FEW (NEG); URINE EPITHELIAL CELLS 0 - 2 /hpf (0-5)
[2017-06-27 11:50] LABS: URINE APPEARANCE CLEAR (CLEAR)
--- NOTE | 2017-06-27 12:41 | CP.PCM.PN ---
<Shae Soria - Last Filed: 06/27/17 12:41> Subjective - Date & Time of Evaluation Date of Evaluation: 06/27/17 Time of Evaluation: 08:55 - Subjective Subjective: S&E at bedside this am, having loose stool but with lots of flatus, no bleeding. No fever or chills, suprapubic discomfort slightly better. Tolerating food. No fever or chill, urinating with no complaints. Objective - Vital Signs/Intake and Output Vital Signs (last 24 hours): Temp Pulse Resp BP Pulse Ox 100.8 F H 109 H 20 114/70 97 06/27/17 08:30 06/27/17 08:30 06/27/17 08:30 06/27/17 08:30 06/27/17 08:30 Intake and Output: 06/27/17 06/27/17 06:59 18:59 Intake Total 860 360 Output Total 1500 Balance -640 360 - Medications Medications: Current Medications Acetaminophen (Tylenol 325mg Tab) 650 mg PO Q4H PRN PRN Reason: TEMP > 101.5 F Last Admin: 06/27/17 05:06 Dose: 650 mg Piperacillin Sod/Tazobactam Sod (Zosyn 2.25 Gm In 0.9% 100 Ml) 2.25 gm in 100 mls @ 100 mls/hr IV Q8 PAULO PRN Reason: Protocol Stop: 07/05/17 22:01 Last Admin: 06/27/17 05:06 Dose: 100 mls/hr Insulin Human Regular (Humulin R Med) 0 units SC ACHS PAULO PRN Reason: Protocol Last Admin: 06/27/17 09:10 Dose: Not Given Oxycodone/Acetaminophen (Percocet 5/325 Mg Tab) 1 tab PO Q6H PRN PRN Reason: Pain, moderate (4-7) Stop: 06/29/17 11:44 Last Admin: 06/27/17 00:10 Dose: 1 tab - Labs Labs: 06/27/17 06:30 06/27/17 06:30 PT 13.2 Seconds (9.9-11.8) H 06/27/17 06:30 INR 1.22 (0.93-1.08) H 06/27/17 06:30 APTT 39.7 Seconds (23.7-30.8) H 06/27/17 06:30 - Constitutional Appears: No Acute Distress - Head Exam Head Exam: NORMOCEPHALIC - Eye Exam Eye Exam: Normal appearance. absent: Scleral icterus - ENT Exam ENT Exam: Mucous Membranes Moist - Neck Exam Neck Exam: Normal Inspection - Respiratory Exam Respiratory Exam: Clear to Ausculation Bilateral, NORMAL BREATHING PATTERN. absent: Respiratory Distress - Cardiovascular Exam Cardiovascular Exam: +S1, +S2 - GI/Abdominal Exam GI & Abdominal Exam: Soft, Tenderness (more suprapubic), Normal Bowel Sounds. absent: Guarding, Organomegaly, Rebound - Extremities Exam Extremities Exam: Normal Capillary Refill. absent: Calf Tenderness, Pedal Edema - Neurological Exam Neurological Exam: Alert, Awake, Oriented x3 Assessment and Plan - Assessment and Plan (Free Text) Assessment: ASSESSMENT: Leukocytosis Abdominal Pain, more suprapubic may be secondary to Prostatitis Hyperbilirubinemia, now normalized Morbid obesity DM Elevated PSA PLAN: mod carb diet on Zosyn stool cdiff urine c/s pending ID /urology FU Seen and discussed with Dr. Burciaga. <Jj Burciaga V - Last Filed: 06/27/17 23:38> Objective - Vital Signs/Intake and Output Vital Signs (last 24 hours): Temp Pulse Resp BP Pulse Ox 98.8 F 116 H 20 109/65 95 06/27/17 20:00 06/27/17 16:00 06/27/17 16:00 06/27/17 16:00 06/27/17 16:00 Intake and Output: 06/27/17 06/28/17 18:59 06:59 Intake Total 1760 Output Total 1100 Balance 660 - Medications Medications: Current Medications Acetaminophen (Tylenol 325mg Tab) 650 mg PO Q4H PRN PRN Reason: TEMP > 101.5 F Last Admin: 06/27/17 13:33 Dose: 650 mg Piperacillin Sod/Tazobactam Sod (Zosyn 3.375 In Ns 100ml) 100 mls @ 200 mls/hr IVPB Q6 PAULO PRN Reason: Protocol Stop: 06/28/17 12:29 Ibuprofen (Motrin Tab) 600 mg PO Q6H PRN PRN Reason: Fever >100.4 F Last Admin: 06/27/17 15:47 Dose: 600 mg Insulin Human Regular (Humulin R Med) 0 units SC ACHS PAULO PRN Reason: Protocol Last Admin: 06/27/17 21:52 Dose: Not Given Oxycodone/Acetaminophen (Percocet 5/325 Mg Tab) 1 tab PO Q6H PRN PRN Reason: Pain, moderate (4-7) Stop: 06/29/17 11:44 Last Admin: 06/27/17 22:02 Dose: 1 tab - Labs Labs: 06/27/17 06:30 06/27/17 06:30 PT 13.2 Seconds (9.9-11.8) H 06/27/17 06:30 INR 1.22 (0.93-1.08) H 06/27/17 06:30 APTT 39.7 Seconds (23.7-30.8) H 06/27/17 06:30 Attending/Attestation - Attestation I have personally seen and examined this patient.: Yes I have fully participated in the care of the patient.: Yes I have reviewed all pertinent clinical information, including history, physical exam and plan: Yes Notes (Text): t
--- NOTE | 2017-06-27 13:55 | PN ---
DATE: 06/27/2017 SUBJECTIVE: The patient seen in bed. Seen earlier today. He states he if feeling better now. He continues to have fevers. PHYSICAL EXAMINATION VITAL SIGNS: Temperature is 100.8, blood pressure is 114/70, respiratory rate 20, heart rate of 109. HEENT: Unremarkable. NECK: Supple. LUNGS: Decreased breath sounds. HEART: Normal S1 and S2. ABDOMEN: Soft. Mild tenderness on lower abdomen. No rebound or guarding. LABORATORY DATA: Reveals a white count of 20,000, hemoglobin of 12, platelets of 198. BUN of 14, creatinine of 1.1. Urinalysis reveals to be pending WBC's and pending WBC's and moderate blood. Microbiology reveals the blood cultures are negative. Urine cultures are pending. Review of orders reveals the Zosyn. ASSESSMENT AND PLAN: This is a 52-year-old morbidly obese male with a BMI of 44 with diabetes, hypertension, high cholesterol and with a history of cholecystectomy admitted with severe sepsis, cystitis with acute kidney injury on Zosyn and waiting for urinalysis and urine culture. Blood cultures are thus far negative. Recommend a urology evaluation. The patient does have an elevated prostate specific antigen of 21, should have a urology evaluation. Dr. Sauer has been called. Waiting for his consultation. Dillon Alaniz MD
--- NOTE | 2017-06-27 20:10 | US ---
HISTORY: Leg pain and swelling. Evaluate for DVT PHYSICIAN(S): Chip Clarke MD. TECHNIQUE: Duplex sonography and color-flow Doppler with graded compression were used to evaluate the deep venous systems of both lower extremities. The exam is limited by body habitus. FINDINGS: The visualized deep venous systems of both lower extremities are sonographically normal and compressible. Normal wave forms and augmentation are seen. There is no sonographic evidence for deep venous thrombosis in the visualized segments of both lower extremities. IMPRESSION: No sonographic evidence for deep venous thrombosis in the visualized segments of both lower extremities.
--- NOTE | 2017-06-27 20:20 | US ---
EXAM: US Bladder CLINICAL HISTORY: 52 years old, male; Pain; Abdominal pain; Other: Bladder residual volume; Additional info: Cystitis TECHNIQUE: Real-time ultrasound of the bladder with image documentation. EXAM DATE/TIME: 06/27/2017 4:02 PM COMPARISON: CT - ABD PELVIS W/O PO OR IV CONT 06/26/2017 1:54:21 AM FINDINGS: Patient voided prior to the study. Prevoid imaging was not performed. Post void bladder volume is estimated at 82.4 cc. IMPRESSION: 82.4 cc postvoid residual, no prevoid obtained
--- NOTE | 2017-06-28 00:16 | PN ---
DATE: 06/27/2017 SUBJECTIVE: The patient has no complaints of any chest pain. No shortness of breath. He states his diaphoresis better. His urinary incontinence is better. PHYSICAL EXAMINATION VITAL SIGNS: Temperature is 98, pulse 116, blood pressure 109/65 and respirations 20. GENERAL: The patient is lying in bed comfortable, in no acute distress. NECK: No JVD, adenopathy, thyromegaly or bruits. CARDIOVASCULAR: S1, S2 regular. No murmurs, rubs or gallops. LUNGS: Good bilateral air entry. No wheezes, rales or rhonchi. ABDOMEN: Bowel sounds are positive, soft, and obese. No rebound. GENITOURINARY: No CVA tenderness. EXTREMITIES: Legs, no cyanosis, clubbing or edema. NEUROLOGIC: Alert, awake and oriented x3. LABORATORY DATA: White count 20, hemoglobin 12.7. Creatinine 1.1, potassium 3.2. He had lower extremity duplex Doppler that shows no evidence of DVT. He had a bladder ultrasound done that showed 82.4 mL postvoid residual. No pre-void obtained. ASSESSMENT: 1. Sepsis. 2. Elevated prostate specific antigen. 3. Acute kidney injury, resolved. 4. Diabetes type 2. 5. Dyslipidemia. 6. with body mass index of 44. 7. Hypokalemia. PLAN: The patient is currently comfortable. He does have an elevated PSA. The patient is seen by Dr. Sauer today. The patient's white count remains elevated. The patient's potassium has been replaced. Blood cultures have been negative. Urine cultures are still pending. The patient was also given magnesium for magnesium replacement. The patient is on Percocet for pain. The patient's creatinine is back to baseline and Zosyn may need to be restarted at a higher dose. Nish Mathias MD
--- NOTE | 2017-06-28 00:33 | CON ---
DATE OF SERVICE: 06/27/2017 CHIEF COMPLAINT: Sepsis. HISTORY OF PRESENT ILLNESS: This is a 52-year-old man who complained of fever, chills. His past history includes diabetes. He had some urgency and frequency but has been voiding good amounts. No flank pain. A CAT scan was done, which showed no hydronephrosis or calculi. It did show some stranding behind the bladder. His PSA is 21. His urinalysis showed 1-3 wbc's, few bacteria, white count 22,000, 20,800 this morning. Coagulation studies are normal. No family history of prostate cancer. PAST MEDICAL HISTORY: Significant for type 2 diabetes, he takes Glucotrol, Lipitor, Invokana at home. SOCIAL HISTORY: He does not smoke anymore. He does drink socially. FAMILY HISTORY: Noncontributory. REVIEW OF SYSTEMS: Currently, no symptoms referable to head, eyes, ears, nose or throat, no cardiac, respiratory symptoms, no gastrointestinal symptoms. His urinary symptoms are resolving. PHYSICAL EXAMINATION VITAL SIGNS: Temperature is 99.3 at this point, blood pressure 109/65, pulse 116, respirations 20. HEENT: Normocephalic, sclerae clear. Conjunctivae not injected. NECK: No CVA pain. ABDOMEN: No hepatosplenomegaly, rebound or guarding. GENITALIA: Unremarkable. RECTAL: Shows the prostate to be benign with no tenderness, nodularity or induration. LABORATORY DATA: As mentioned, the CAT scan showed some stranding posterior to the bladder and seminal vesicles. I feel he has a prostatitis. He currently is on Zosyn 2.25 g every 8 hours. His creatinine was 1.1 with a BUN of 14. ASSESSMENT AND PLAN: I will speak with Dr. Alaniz about the dose. I think this is a prostatitis, which should resolve. I am going to check with the nurses, but according to the nurses, he has been voiding good amounts and has voided over 1100 mL in good quantities. Continue IV antibiotics. No need for urologic intervention. The patient was told the findings and should respond to IV antibiotics. Juan Alberto Sauer MD [facility] # [id number]
[2017-06-28] MEDS ORDERED: Piperacillin/Tazobact 3.375 gm 100 ML IVPB SCH ×2 (06:00)
[2017-06-28 06:54] LABS: HEMOGLOBIN 12.4 gm/dL (14.0-18.0); MEAN CELL VOLUME 81.2 fL (80.0-105.0); MEAN CORPUSCULAR HEMOGLOBIN 27.1 pg (25.0-35.0); MEAN CORPUSCULAR HGB CONC 33.4 g/dl (31.0-37.0); MEAN PLATELET VOLUME 10.7 fl (7.0-11.0); RBC 4.57 10^6/uL (3.5-6.1); RED CELL DISTRIBUTION WIDTH 14.2 % (11.5-14.5); WHITE BLOOD COUNT 10.2 10^3/ul (4.5-11.0)
[2017-06-28 07:08] LABS: ALBUMIN 3.2 g/dL (3.0-4.8); ALT/SGPT 38 U/L (7-56); AST/SGOT 26 U/L (15-59); BLOOD UREA NITROGEN 16 mg/dL (7-21); CALCIUM 8.5 mg/dL (8.4-10.5); GFR AFRICAN-AMERICAN > 60; GFR NON-AFRICAN AMERICAN > 60
[2017-06-28] MEDS: Insulin Reg-MEDIUM-Coverage SC SCH ×5 (08:37→22:08)
[2017-06-28] MEDS: Meropenem 1g/NS 100mL IVPB 1 GM/100 ML PIGGYBACK IVPB SCH ×3 (10:35→22:09)
--- NOTE | 2017-06-28 11:45 | PN ---
DATE: 06/28/2017 SUBJECTIVE: The patient is seen in bed in no acute distress; however, he continues to have fevers. PHYSICAL EXAMINATION: VITAL SIGNS: Temperature is 103, blood pressure is 120/70, respiratory rate of 20, heart rate of 118. HEENT: Unremarkable. NECK: Supple. LUNGS: Decreased breath sounds. HEART: Normal S1 and S2. ABDOMEN: Soft and nontender. LABORATORY DATA: Reveals the patient's white count is down to 10,000 today, hemoglobin of 12, and the platelets of 182. The coagulation is noted and the blood gases are noted. BUN of 16, creatinine of 1.0, glucose is 151 and PSA is 21. Urinalysis is 1 to 3 WBCs, though this urinalysis was collected after antibiotics were given. Urine and blood cultures, no growth. Review of orders reveals the patient is on Zosyn. Dr. Sauer's note is reviewed. Dr. Mathias's note is reviewed. ASSESSMENT AND PLAN: He is a 52-year-old male with morbid obesity with a body mass index of 44; diabetes, hypertension, high cholesterol; history of cholecystectomy; admitted with severe sepsis and cystitis with acute kidney injury and prostatitis. We will discontinue the Zosyn and upgrade to meropenem 1 g IV q. 8 and awaiting for urine culture, although his white count is improved; his fever persist, concerned about resistant gram negative and that is the reason for a change into meropenem and the patient also had a ultrasound of the lower extremities, was negative for DVT and also had a bladder ultrasound, which showed noted and we will make further recommendation. We will follow closely with you. The patient with a PSA of 21.4. Dillon Alaniz MD
--- NOTE | 2017-06-28 11:50 | CP.PCM.PN ---
<Shae Soria - Last Filed: 06/28/17 11:50> Subjective - Date & Time of Evaluation Date of Evaluation: 06/28/17 Time of Evaluation: 09:30 - Subjective Subjective: seen and examined at the bedside earlier today, chart reviewed. No acute overnight events reported. Suprapubic discomfort improved, no dysuria or hematuria. Still had loose p.m. yesterday no reports of any bleeding. Stool for C. difficile sent and results pending. Tolerating oral intake. No nausea, vomiting, shortness of breath, chest pains or fevers. Had eval with urology, had ballder US, post void 82.4 cc, see report. Objective - Vital Signs/Intake and Output Vital Signs (last 24 hours): Temp Pulse Resp BP Pulse Ox 100.0 F H 118 H 20 121/73 96 06/28/17 11:26 06/28/17 06:00 06/28/17 06:00 06/28/17 06:00 06/28/17 06:00 Intake and Output: 06/28/17 06/28/17 06:59 18:59 Intake Total 680 Output Total 900 Balance -220 - Medications Medications: Current Medications Acetaminophen (Tylenol 325mg Tab) 650 mg PO Q4H PRN PRN Reason: TEMP > 101.5 F Last Admin: 06/28/17 05:42 Dose: 650 mg Meropenem 1g/NS 100mL IVPB (Meropenem 1g/Ns 100ml Ivpb) 1 gm in 100 mls @ 100 mls/hr IVPB Q8 PAULO PRN Reason: Protocol Stop: 07/07/17 09:39 Last Admin: 06/28/17 10:35 Dose: 100 mls/hr Ibuprofen (Motrin Tab) 600 mg PO Q6H PRN PRN Reason: Fever >100.4 F Last Admin: 06/28/17 11:26 Dose: 600 mg Insulin Human Regular (Humulin R Med) 0 units SC ACHS PAULO PRN Reason: Protocol Last Admin: 06/28/17 11:29 Dose: Not Given Oxycodone/Acetaminophen (Percocet 5/325 Mg Tab) 1 tab PO Q6H PRN PRN Reason: Pain, moderate (4-7) Stop: 06/29/17 11:44 Last Admin: 06/27/17 22:02 Dose: 1 tab - Labs Labs: 06/28/17 05:40 06/28/17 05:40 PT 13.2 Seconds (9.9-11.8) H 06/27/17 06:30 INR 1.22 (0.93-1.08) H 06/27/17 06:30 APTT 39.7 Seconds (23.7-30.8) H 06/27/17 06:30 - Constitutional Appears: No Acute Distress - Head Exam Head Exam: NORMOCEPHALIC - Eye Exam Eye Exam: Normal appearance. absent: Scleral icterus Pupil Exam: NORMAL ACCOMODATION - ENT Exam ENT Exam: Mucous Membranes Moist - Respiratory Exam Respiratory Exam: NORMAL BREATHING PATTERN. absent: Respiratory Distress - Cardiovascular Exam Cardiovascular Exam: +S1, +S2 - GI/Abdominal Exam GI & Abdominal Exam: Soft, Normal Bowel Sounds. absent: Guarding, Tenderness, Rebound Additional comments: obese - Extremities Exam Extremities Exam: Normal Capillary Refill. absent: Calf Tenderness, Pedal Edema Additional comments: lower extremity Dopplers negative. - Neurological Exam Neurological Exam: Alert, Awake, Oriented x3 - Skin Skin Exam: Dry, Warm Assessment and Plan - Assessment and Plan (Free Text) Assessment: ASSESSMENT: Leukocytosis, Abdominal Pain, more suprapubic may be secondary to Prostatitis Hyperbilirubinemia, now normalized Morbid obesity DM Elevated PSA PLAN: mod carb diet now on Merpenum FU stool cdiff, result pending ID /urology FU urine culture negative Seen and discussed with Dr. Burciaga. <Jj Burciaga V - Last Filed: 06/29/17 00:13> Objective - Vital Signs/Intake and Output Vital Signs (last 24 hours): Temp Pulse Resp BP Pulse Ox 98.2 F 84 20 136/93 H 96 06/28/17 16:13 06/28/17 16:13 06/28/17 16:13 06/28/17 16:13 06/28/17 16:13 Intake and Output: 06/28/17 06/29/17 18:59 06:59 Intake Total 360 1080 Balance 360 1080 - Medications Medications: Current Medications Acetaminophen (Tylenol 325mg Tab) 650 mg PO Q4H PRN PRN Reason: TEMP > 101.5 F Last Admin: 06/28/17 05:42 Dose: 650 mg Meropenem 1g/NS 100mL IVPB (Meropenem 1g/Ns 100ml Ivpb) 1 gm in 100 mls @ 100 mls/hr IVPB Q8 PAULO PRN Reason: Protocol Stop: 07/07/17 09:39 Last Admin: 06/28/17 22:09 Dose: 100 mls/hr Ibuprofen (Motrin Tab) 600 mg PO Q6H PRN PRN Reason: Fever >100.4 F Last Admin: 06/28/17 11:26 Dose: 600 mg Insulin Human Regular (Humulin R Med) 0 units SC ACHS PAULO PRN Reason: Protocol Last Admin: 06/28/17 22:08 Dose: Not Given Oxycodone/Acetaminophen (Percocet 5/325 Mg Tab) 1 tab PO Q6H PRN PRN Reason: Pain, moderate (4-7) Stop: 06/29/17 11:44 Last Admin: 06/28/17 22:51 Dose: 1 tab - Labs Labs: 06/28/17 05:40 06/28/17 05:40 PT 13.2 Seconds (9.9-11.8) H 06/27/17 06:30 INR 1.22 (0.93-1.08) H 06/27/17 06:30 APTT 39.7 Seconds (23.7-30.8) H 06/27/17 06:30 Attending/Attestation - Attestation I have personally seen and examined this patient.: Yes I have fully participated in the care of the patient.: Yes I have reviewed all pertinent clinical information, including history, physical exam and plan: Yes Notes (Text):
[2017-06-28 21:11] LABS: URINE BILIRUBIN NEGATIVE (NEGATIVE); URINE BLOOD LARGE (NEGATIVE); URINE GLUCOSE (UA) 250 mg/dL (NEGATIVE); URINE LEUKOCYTE ESTERASE NEGATIVE Leu/uL (NEGATIVE); URINE NITRATE NEGATIVE (NEGATIVE); URINE PROTEIN 100 mg/dL (<30 mg/dL)
[2017-06-28 21:14] LABS: URINE COLOR YELLOW (YELLOW)
[2017-06-28 21:15] LABS: URINE APPEARANCE SLIGHT-CLOUDY (CLEAR)
[2017-06-28 21:27] LABS: URINE BACTERIA TRACE (NEG); URINE RBC 20 - 25 /hpf (0-2)
[2017-06-28] MEDS: Oxycodone/Acetaminophen 5/325 mg Tab PO PRN (22:51)
[2017-06-29] MEDS: Meropenem 1g/NS 100mL IVPB 1 GM/100 ML PIGGYBACK IVPB SCH ×3 (06:08→21:53)
[2017-06-29] MEDS: Insulin Reg-MEDIUM-Coverage SC SCH ×4 (08:11→23:36)
--- NOTE | 2017-06-29 08:33 | PN ---
DATE: 06/29/2017 This is a late entry from yesterday. SUBJECTIVE: The patient has no complaints of any chest pain. No shortness of breath. He did have a fever. PHYSICAL EXAMINATION: VITAL SIGNS: Temperature is 103, pulse of 118, blood pressure 121/73, respirations 20 and O2 saturation 96%. GENERAL: The patient is comfortable, in no acute distress. HEENT: Anicteric sclerae. Moist mucosa. NECK: No JVD or adenopathy. CARDIAC: S1, S2. No murmurs. No rubs. Regular. RESPIRATORY: Clear to auscultation bilaterally. No wheezes, rales, or rhonchi. Good air entry. ABDOMEN: Bowel sounds are positive, soft, nontender, and nondistended. EXTREMITIES: No edema. Has 1+ pulses. ASSESSMENT: 1. Sepsis. 2. Elevated prostate specific antigen. 3. Acute kidney injury, resolved. 4. Diabetes type 2. 5. Hypokalemia, improved. 6. Dyslipidemia. 7. Obesity with body mass index of 44. PLAN: The patient is currently comfortable. antibiotics, he may need further urological intervention given the patient is having continued bleed risk. He may have an abscess. The patient is on Percocet for pain. He is on Tylenol p.r.n. He is going to have the insulin for coverage with sliding scale. Nish Mathias MD
--- NOTE | 2017-06-29 12:16 | PN ---
DATE: 06/29/2017 SUBJECTIVE: The patient is seen in bed in no acute distress, nontoxic. No fevers. However, he did have fevers earlier. He states overall he is improving. PHYSICAL EXAMINATION: VITAL SIGNS: Temperature 98, T-max is 101, appears to be on a downward trend, and blood pressure is 125/80. HEENT: Unremarkable. NECK: Supple. HEART: Normal S1 and S2. LUNGS: Decreased breath sounds. ABDOMEN: Soft and nontender. No rebound. No guarding. No masses. LABORATORY DATA: Microbiology reveals urine culture is negative. Blood cultures no growth. Stool for C. diff toxin and antigen are negative. The patient is on meropenem. ASSESSMENT AND PLAN: He is a 52-year-old morbidly obese male with a body mass index of 44 and diabetes, high cholesterol, history of cholecystectomy admitted with severe sepsis and cystitis and acute kidney injury and prostatitis with persistent fever. It appears to be on a downward trend with negative blood cultures and negative urine cultures. Unfortunately, urine cultures were obtained after antibiotics were given. The patient does have elevated PSA of 21. We will continue the present course. We will order a serum cryptococcal antigen and repeat the urinalysis and urine culture and continue meropenem until the patient is afebrile for 24 hours and we need a followup. Dr. Rocha's note from this morning is reviewed. Case discussed with Dr. Rocha. Dillon Alaniz MD
--- NOTE | 2017-06-29 12:25 | PN ---
DATE: 06/29/2017 SUBJECTIVE: The patient has no complaints of any headache or dizziness. He has frustrated about being in the hospital. I did explain to him the impotence of him staying. PHYSICAL EXAMINATION VITAL SIGNS: Temperature of 98.8, pulse of 104, blood pressure 125/87, respirations 20. GENERAL: The patient is lying in bed, flat comfortable, in no acute distress. NECK: No JVD, adenopathy, or thyromegaly or bruits. CARDIOPULMONARY: S1 and S2 is regular. No murmurs, rubs, or gallops. LUNGS: Good bilateral air entry. No wheezes, rales or rhonchi. ABDOMEN: Bowel sounds are positive, soft nontender and nondistended. No hepatosplenomegaly. EXTREMITIES: Low extremity; no cyanosis, clubbing, or edema. NEUROLOGIC: He is alert, awake and oriented x3. LABORATORY DATA: No new labs. Last potassium was 3.3. ASSESSMENT: 1. Sepsis, secondary to prostatitis. 2. Elevated prostate specific antigen. 3. Acute kidney injury, resolved. 4. Diabetes type 2. 5. Hypokalemia. 6. Dyslipidemia. 7. Obesity with body mass index of 44. PLAN: The patient is currently comfortable. He has blood cultures and urine cultures have been negative. He also had a C-diff, which was negative. The patient is on ibuprofen for fever. He is on meropenem for antibiotics. The patient did have a 101.3 temperature early this morning, repeat was 98.8. I did tell the patient that it will take some time for him to improve. He is on insulin sliding scale, he is on diet, he is ambulating, does not need to be on DVT prophylaxis. I will repeat blood work tomorrow. He will also be allowed to shower. Nish Mathias MD
[2017-06-29 23:49] LABS: URINE BILIRUBIN NEGATIVE (NEGATIVE); URINE BLOOD LARGE (NEGATIVE); URINE GLUCOSE (UA) NEGATIVE (NEGATIVE); URINE LEUKOCYTE ESTERASE NEGATIVE Leu/uL (NEGATIVE); URINE NITRATE NEGATIVE (NEGATIVE); URINE PROTEIN 30 mg/dL (<30 mg/dL); URINE UROBILINOGEN 0.2 E.U./dL (<1 E.U./dL)
[2017-06-29 23:53] LABS: URINE APPEARANCE SL CLOUDY (CLEAR); URINE COLOR YELLOW (YELLOW)
[2017-06-30 00:02] LABS: URINE EPITHELIAL CELLS 0 - 2 /hpf (0-5)
[2017-06-30] MEDS: Meropenem 1g/NS 100mL IVPB 1 GM/100 ML PIGGYBACK IVPB SCH ×3 (05:09→22:18)
[2017-06-30 06:56] LABS: ALB/GLOB RATIO 0.9 (1.1-1.8); ALBUMIN 2.9 g/dL (3.0-4.8); ALT/SGPT 38 U/L (7-56); AST/SGOT 30 U/L (15-59); BLOOD UREA NITROGEN 22 mg/dL (7-21); CALCIUM 8.3 mg/dL (8.4-10.5); GFR AFRICAN-AMERICAN > 60; GFR NON-AFRICAN AMERICAN > 60
[2017-06-30 07:11] LABS: HEMOGLOBIN 12.7 gm/dL (14.0-18.0); MEAN CELL VOLUME 82.4 fL (80.0-105.0); MEAN CORPUSCULAR HGB CONC 32.7 g/dl (31.0-37.0); MEAN PLATELET VOLUME 10.7 fl (7.0-11.0); RBC 4.71 10^6/uL (3.5-6.1); RED CELL DISTRIBUTION WIDTH 14.3 % (11.5-14.5); WHITE BLOOD COUNT 5.4 10^3/ul (4.5-11.0)
[2017-06-30] MEDS: Insulin Reg-MEDIUM-Coverage SC SCH ×4 (08:06→22:19)
[2017-06-30] MEDS ORDERED: Potassium Chloride 20 mEq ER Tab PO ONE (10:47)
--- NOTE | 2017-06-30 11:50 | PN ---
DATE: 06/30/2017 SUBJECTIVE: The patient has no complaints of any chest pain. No shortness of breath. PHYSICAL EXAMINATION: VITAL SIGNS: He did have a temperature of 100.9, repeat was 97.5, pulse of 59, blood pressure 120/75, respiration is 18. GENERAL: The patient is comfortable, in no acute distress. HEENT: Anicteric sclerae. Moist mucosa. NECK: No JVD or adenopathy. CARDIAC: S1, S2. No murmurs. No rubs. Regular. RESPIRATORY: Clear to auscultation bilaterally. No wheezes, rales, or rhonchi. Good air entry. ABDOMEN: Bowel sounds are positive, soft, nontender, and nondistended. EXTREMITIES: No edema. Has 1+ pulses. LABORATORY DATA: Potassium is 3.3. ASSESSMENT: 1. Sepsis, secondary to prostatitis. 2. Elevated prostate specific antigen. 3. Acute kidney injury, resolved. 4. Hypokalemia. 5. Dyslipidemia. 6. Obesity with a body mass index of 44. PLAN: The patient continues to have fevers. We will need to have the patient afebrile for 24 hours. The patient is on meropenem for antibiotics. He is on Tylenol. I will replace the patient's potassium. The patient has a HIV test that is negative. Nish Mathias MD
--- NOTE | 2017-06-30 12:18 | PN ---
DATE: 06/30/2017 SUBJECTIVE: The patient is seen in bed and in no acute distress. His temperature in on the downward trend and this morning with a temperature of 97, earlier today last night, the patient had temperature of 100.9. PHYSICAL EXAMINATION VITAL SIGNS: ,Blood pressure is 120/70, respiratory rate of 18, and heart rate of 59. HEENT: Unremarkable. NECK: Supple. LUNGS: Decreased breath sounds. HEART: Normal S1 and S2. ABDOMEN: Soft and nontender. LABORATORY DATA: Examination reveals the patient's white count of 5.4, hemoglobin of 12, and platelets of 214. Bun of 22 and creatinine of 0.9. Urinalysis is noted and HIV is negative. Microbiology revealed the blood cultures negative. Urine cultures no growth. Unfortunately, urine culture was obtained after antibiotics were given. Review of orders revealed the patient to be on meropenem and the patient's PSA is elevated at 21.4. ASSESSMENT AND PLAN: This is a 52-year-old male with morbid obesity, body mass index of 44, diabetes mellitus, high cholesterol, history of cholecystectomy, admitted with severe sepsis, with cystitis, acute kidney injury, and prostatitis with persistent fevers, leukocytosis appears to be on a downward trend with negative blood culture and negative urine culture. Unfortunately, urine culture was obtained after the antibiotics were given. We will continue meropenem and we will check on the serum cryptococcal antigen, the in the prostate and that is pending the patient's fever curve. The white count appears to be improving and check on the serum cryptococcal antigen. Dillon Alaniz MD
[2017-07-01] MEDS: Meropenem 1g/NS 100mL IVPB 1 GM/100 ML PIGGYBACK IVPB SCH ×2 (06:08→14:33)
[2017-07-01 07:46] VITALS: PULSE 63
[2017-07-01] MEDS: Insulin Reg-MEDIUM-Coverage SC SCH ×3 (07:58→16:38)
--- NOTE | 2017-07-01 14:16 | PN ---
GASTROINTESTINAL FOLLOWUP NOTE SUBJECTIVE: Seen and examined at the bedside earlier today. The patient is awaiting to be discharge home. He denies any nausea, vomiting, or abdominal. His diarrhea is better. He had a soft bowel movement and no reports of any bleeding. No complaints of abdominal pain. PHYSICAL EXAMINATION: VITAL SIGNS: He had T-max of 100.1 at midnight this morning. His temperature is 97.5. No acute overnight event reported. Blood pressure is 120/73, pulse is 62, respirations are 21 and oxygen saturation is 98% room air. HEENT: Sclerae is anicteric. NECK: Supple. CARDIAC: S1 and S2. LUNGS: With decreased breath sounds, but good air entry. No rales or wheeze. ABDOMEN: Bowel sounds soft and nondistended. It is slightly obese and nontender. EXTREMITIES: No edema. NEUROLOGIC: Awake, alert, and oriented. LABORATORY DATA: He had urine culture done and was showed no growth. Stool for C. diff was negative. ASSESSMENT: The patient with fevers, sepsis likely secondary to prostatitis. He has elevated prostate specific antigen, resolved. Acute renal failure and obesity. PLAN: The patient is currently on IV antibiotics of meropenem, recommend Tylenol p.r.n, fever. Continue diet as tolerated. Continue current treatment. The patient was seen and case discussed with Dr. Burciaga. ELIAS Wong
[2017-07-01 15:57] VITALS: BP 114/65; RESP 18; TEMP 98.8; O2SAT 63
--- NOTE | 2017-07-01 16:03 | CP.PCM.PN ---
Subjective - Date & Time of Evaluation Date of Evaluation: 07/01/17 Time of Evaluation: 10:05 - Subjective Subjective: Comfortable on a chair, not in distress, afebrile overnight. Objective - Vital Signs/Intake and Output Vital Signs (last 24 hours): Temp Pulse Resp BP Pulse Ox 98.8 F 63 18 114/65 63 L 07/01/17 15:56 07/01/17 15:56 07/01/17 15:56 07/01/17 15:56 07/01/17 15:56 Intake and Output: 07/01/17 07/01/17 06:59 18:59 Intake Total 1600 480 Output Total 800 700 Balance 800 -220 - Medications Medications: Current Medications Acetaminophen (Tylenol 325mg Tab) 650 mg PO Q4H PRN PRN Reason: TEMP > 101.5 F Last Admin: 07/01/17 00:14 Dose: 650 mg Meropenem 1g/NS 100mL IVPB (Meropenem 1g/Ns 100ml Ivpb) 1 gm in 100 mls @ 100 mls/hr IVPB Q8 PAULO PRN Reason: Protocol Stop: 07/07/17 09:39 Last Admin: 07/01/17 14:33 Dose: 100 mls/hr Ibuprofen (Motrin Tab) 600 mg PO Q6H PRN PRN Reason: Fever >100.4 F Last Admin: 06/30/17 22:28 Dose: 600 mg Insulin Human Regular (Humulin R Med) 0 units SC ACHS PAULO PRN Reason: Protocol Last Admin: 07/01/17 12:17 Dose: 1 units - Labs Labs: 06/30/17 06:00 06/30/17 06:30 PT 13.2 Seconds (9.9-11.8) H 06/27/17 06:30 INR 1.22 (0.93-1.08) H 06/27/17 06:30 APTT 39.7 Seconds (23.7-30.8) H 06/27/17 06:30 - Constitutional Appears: Non-toxic, No Acute Distress - Head Exam Head Exam: NORMAL INSPECTION - ENT Exam ENT Exam: Mucous Membranes Moist - Neck Exam Neck Exam: absent: Lymphadenopathy, Meningismus - Respiratory Exam Respiratory Exam: Decreased Breath Sounds - Cardiovascular Exam Cardiovascular Exam: +S1, +S2 - GI/Abdominal Exam GI & Abdominal Exam: Soft. absent: Tenderness Assessment and Plan - Assessment and Plan (Free Text) Plan: Assessment Severe sepsis acute renal failure secondary to cystitis rule out prostatitis morbid obesity with BMI 44 DM dyslipidemia history of cholecystectomy Plan Urine cx were taken after the patient was started on antibiotics; when ready for discharge, the patient can be switched to PO Cefpodoxime 200 mg BID for another 3 weeks with outpatient follow up with PMD
--- NOTE | 2017-07-02 03:08 | DS ---
HISTORY OF PRESENT ILLNESS: This is a 52-year-old male who came into the hospital with sepsis. He was found to have prostatitis. He was seen by Urology. The patient's fever has improved. He is ------* well. He had acute kidney injury that has improved as well. He has no complaints of any chest pain. No shortness of breath, headache, or dizziness. PHYSICAL EXAMINATION: VITAL SIGNS: Temperature is 97.5, pulse is 63, blood pressure 120/73 and respirations 21. GENERAL: The patient is comfortable, in no acute distress. HEENT: Anicteric sclerae. Moist mucosa. NECK: No JVD or adenopathy. CARDIAC: S1, S2. No murmurs. No rubs. Regular. RESPIRATORY: Clear to auscultation bilaterally. No wheezes, rales, or rhonchi. Good air entry. ABDOMEN: Bowel sounds are positive, soft, nontender, and nondistended. EXTREMITIES: No edema. Has 1+ pulses. LABORATORY DATA: White count of 5.4 and hemoglobin 12.7. ASSESSMENT: 1. Sepsis secondary to prostatitis. 2. Elevated PSA. 3. Acute kidney injury, resolved. 4. Hypokalemia. 5. Dyslipidemia. 6. Obesity with BMI of 44. PLAN: The patient is currently comfortable. He is currently on antibiotics with meropenem. He is going to continue with his insulin sliding scale. He is on Tylenol. He is on a carbohydrate-consistent diet. The patient may be able to go home. I will speak to ID to see if they are comfortable with this. He has been afebrile for almost 24 hours. At this point, clinically, he is improved. He is aware of following with his primary care doctor, Dr. Trevino, and also following with Dr. Sauer for his prostate. Condition is stable. Activities increase as tolerated. He was advised to come back to the hospital if his fevers worsen or persisted. Nish Mathias MD
== END 2017-07-01 18:00 | disposition home or self-care (01) | DRG 872 ==
LOC: ED 22:31 → 3RNO 06-26 03:45
PROVIDERS: ADMIT Internal Medicine Nephrology; ATTEND Internal Medicine Nephrology
DX: A41.9 Sepsis, unspecified organism (principal); N41.9 Inflammatory disease of prostate, unspecified; N17.9 Acute kidney failure, unspecified; Z68.41 Body mass index [BMI] 40.0-44.9, adult; R65.20 Severe sepsis without septic shock; N30.90 Cystitis, unspecified without hematuria; E87.6 Hypokalemia; E11.9 Type 2 diabetes mellitus without complications; E78.5 Hyperlipidemia, unspecified; E66.01 Morbid (severe) obesity due to excess calories; K64.8 Other hemorrhoids; R97.20 Elevated prostate specific antigen [PSA]; E80.6 Other disorders of bilirubin metabolism; E78.00 Pure hypercholesterolemia, unspecified; Z79.84 Long term (current) use of oral hypoglycemic drugs; Z87.891 Personal history of nicotine dependence